=== PATIENT | female | born 1985 | race American Indian/Alaskan Native ===

== ENCOUNTER 2020-07-09 03:47 | Emergency (ER) | payer SELFPAY ==
[2020-07-09 04:51] LABS: Hematocrit 36.7 % (30.3-42.9); Hemoglobin 12.2 gm/dl (10.1-14.3); Mean Corpuscular HGB Conc 33 % (30-34); Mean Corpuscular Volume 83 fl (79-97); Red Blood Count 4.41 M/mm3 (3.65-5.03)
[2020-07-09 04:55] LABS: Lymphocytes % (Auto) 5.9 % (13.4-35.0); Monocytes % (Auto) 10.2 % (0.0-7.3); Platelet Count 183 K/mm3 (140-440); Red Cell Distribution Width 20.6 % (13.2-15.2)
[2020-07-09 04:56] LABS: Basophils # (Auto) 0.1 K/mm3 (0.0-0.1); Eosinophils # (Auto) 0.1 K/mm3 (0.0-0.4); Lymphocytes # (Auto) 0.4 K/mm3 (1.2-5.4); Monocytes # (Auto) 0.7 K/mm3 (0.0-0.8)
[2020-07-09 05:11] LABS: Alanine Aminotransferase 58 units/L (7-56); BUN/Creatinine Ratio 12; Blood Urea Nitrogen 7 mg/dL (7-17); Calcium 9.5 mg/dL (8.4-10.2); Hemolysis Index 0
[2020-07-09 05:51] LABS: Bilirubin,Urine NEG (Negative); Blood,Urine NEG (Negative); Color,Urine Yellow (Yellow); Mucus,Urine 1+ /HPF
[2020-07-09] MEDS ORDERED: SODIUM CHLORIDE 0.9% 1000 ML 1,000 ML IV ONE (07:37)
--- NOTE | 2020-07-09 07:42 | Emergency Department Report ---
ED General Adult HPI - General Chief complaint: Abdominal Pain Stated complaint: VOMITING,COUGHING,STOMACH PAINS Time Seen by Provider: 07/09/20 07:23 Source: patient, EMS Mode of arrival: Ambulatory Limitations: No Limitations - History of Present Illness Initial comments: 35-year-old female patient with history of diabetes, hypertension, asthma, and peptic ulcer disease presents to the emergency department with complaints of generalized body aches, headache, nausea, vomiting, diarrhea, cough, and abdominal pain progressively worsening for 1 week. No known sick contacts. No recent travel. No current steroid or antibiotic use. Last menstrual cycle was 2 weeks ago. Abdominal pain is localized to the right lower quadrant. No prior abdominal surgeries. No known STD exposure or history of STD's. Denies fever, chills, wheezing, chest pain, rectal bleeding, vaginal bleeding, vaginal discharge, urinary symptoms. Denies all other complaints at this time. - Related Data Previous Rx's Medication Instructions Recorded Last Taken Type DOXYCYCLINE Hyclate [Vibramycin 100 mg PO Q12HR 14 Days capsule 07/09/20 Unknown Rx CAP] Metoclopramide [Reglan] 10 mg PO TID #20 tab 07/09/20 Unknown Rx Naproxen [Naprosyn] 500 mg PO BID #20 tablet 07/09/20 Unknown Rx levoFLOXacin [Levaquin TAB] 500 mg PO QDAY 14 Days tablet 07/09/20 Unknown Rx metroNIDAZOLE [Flagyl] 500 mg PO Q12HR 7 Days tab 07/09/20 Unknown Rx Allergies Allergy/AdvReac Type Severity Reaction Status Date / Time peanut Allergy Unknown Verified 07/09/20 04:16 Penicillins Allergy Unknown Verified 07/09/20 04:16 shellfish derived Allergy Unknown Verified 07/09/20 04:16 ED Review of Systems ROS: Stated complaint: VOMITING,COUGHING,STOMACH PAINS Other details as noted in HPI Other: GENERAL: Negative for fever, chills, weight change, anorexia, fatigue. ENT: Negative for ear pain, difficulty hearing, sore throat, nasal congestion, epistaxis. CARDIOVASCULAR: Negative for chest pain, palpitations, lower extremity swelling. PULMONARY: Positive for cough. GASTROINTESTINAL: Positive for abdominal pain, nausea, vomiting, diarrhea. MUSCULOSKELETAL: Positive for myalgias. NEUROLOGICAL: Positive for headache. INTEGUMENTARY: Negative for erythema, rash, diaphoresis, laceration, ecchymosis. HEMATOLOGICAL: Negative for hemoptysis, hematemesis, hematochezia, hematuria. PSYCHIATRIC: Negative for hallucinations, suicidal ideation, homicidal ideation, anxiety, depression. ED Past Medical Hx - Past Medical History Previous Medical History?: Yes Hx Seizures: Yes Hx Asthma: Yes Additional medical history: PUD - Surgical History Past Surgical History?: Yes Additional Surgical History: left arm, radial nerve damage - Social History Smoking Status: Current Every Day Smoker Substance Use Type: None - Medications Home Medications: Home Medications Medication Instructions Recorded Confirmed Last Taken Type DOXYCYCLINE Hyclate [Vibramycin 100 mg PO Q12HR 14 Days capsule 07/09/20 Unknown Rx CAP] Metoclopramide [Reglan] 10 mg PO TID #20 tab 07/09/20 Unknown Rx Naproxen [Naprosyn] 500 mg PO BID #20 tablet 07/09/20 Unknown Rx levoFLOXacin [Levaquin TAB] 500 mg PO QDAY 14 Days tablet 07/09/20 Unknown Rx metroNIDAZOLE [Flagyl] 500 mg PO Q12HR 7 Days tab 07/09/20 Unknown Rx ED Physical Exam - General Limitations: No Limitations - Other Other exam information: General: Awake and alert. No acute distress. Head: Atraumatic, normocephalic. Eyes: EOMI. Pupils are equal and round, reactive to light, no nystagmus. Normal sclera and conjunctiva. ENT: Oral mucosa is moist. Normal pharyngeal exam. Neck: Supple. No lymphadenopathy. Pulmonary: No respiratory distress. Clear to auscultation bilaterally. Cardiac: Tachycardic. Pulses are palpable and equal bilaterally. No lower extremity cyanosis or edema. Skin: Warm and dry. No rashes. Abdomen: Soft, non-protuberant. Positive McBurney's point tenderness with involuntary guarding. Bowel sounds are normal. No organomegaly or masses noted. 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 Normal external inspection. Cervical os is closed. There is no cervical motion tenderness. No blood in the vaginal vault. Thin white discharge present. No adnexal masses. There is uterine tenderness. Back: Normal alignment. No CVA tenderness. Extremities: Symmetrical. Full range of motion intact. Neurological: Alert and oriented, appropriately interactive, no focal deficits. Strength and sensation intact throughout. Psych: Cooperative. Appropriate mood and affect. Speech is evenly metered. Thoughts are logically construed. ED Course Vital Signs 07/09/20 07/09/20 07/09/20 04:09 12:10 12:12 Temperature 98.3 F Pulse Rate 111 H Respiratory 16 18 18 Rate Blood Pressure 135/98 Blood Pressure [Left] O2 Sat by Pulse 95 Oximetry 07/09/20 16:35 Temperature Pulse Rate 92 H Respiratory 18 Rate Blood Pressure Blood Pressure 132/92 [Left] O2 Sat by Pulse 99 Oximetry ED Medical Decision Making - Lab Data Result diagrams: 07/09/20 04:25 07/09/20 04:25 - Radiology Data [facility] [address] [place] [address] Cat Scan Report Signed Patient: KIERAN CLAROS MR#: [id number] : 1985 Acct:[id number] Age/Sex: 35 / F ADM Date: 07/09/20 Loc: ED Attending Dr: Ordering Physician: JEN GONZALEZ Date of Service: 07/09/20 Procedure(s): CT abdomen pelvis w con Accession Number(s): [id number] cc: JEN GONZALEZ CT ABDOMEN AND PELVIS WITH CONTRAST INDICATION / CLINICAL INFORMATION: Right lower quadrant tenderness. TECHNIQUE: Axial CT images were obtained through the abdomen and pelvis after 100 cc of Omnipaque [address] scans at this location are performed using CT dose reduction for ALARA by means of automated exposure control. COMPARISON: None available. FINDINGS: LOWER CHEST: No significant abnormality. LIVER: There is fatty infiltration of the liver. GALLBLADDER: No significant abnormality. BILE DUCTS: No significant abnormality. PANCREAS: No significant abnormality. SPLEEN: No significant abnormality. ADRENALS: No significant abnormality. RIGHT KIDNEY / URETER: No significant abnormality. LEFT KIDNEY / URETER: No significant abnormality. STOMACH / SMALL BOWEL: No significant abnormality. COLON: No significant abnormality. APPENDIX: No significant abnormality. PERITONEUM: No free fluid. No free air. No fluid collection. LYMPH NODES: No significant adenopathy. AORTA / ARTERIES: No significant abnormality. IVC / VEINS: No significant abnormality. URINARY BLADDER: No significant abnormality. REPRODUCTIVE ORGANS: There are uterine fibroids. The largest measures 6.3 cm. There is a 1.7 cm cyst in the left ovary characteristic of physiologic cyst. ADDITIONAL FINDINGS: None. SKELETAL SYSTEM: No significant abnormality. IMPRESSION: 1. There is no obstruction, inflammation, or free air. The appendix is unremarkable. 2. There are uterine fibroids. 3. There is fatty infiltration of the liver. Signer Name: Tereso Jeong MD Signed: 07/09/2020 9:31 AM Workstation Name: [id number] Transcribed By: Dictated By: Tereso Jeong MD Electronically Authenticated By: Tereso Jeong MD Signed Date/Time: 07/09/20930 DD/ 6 TD/TT: - Medical Decision Making Differential diagnosis including but not limited to: appendicitis, pyelonephritis, nephrolithiasis, urinary tract infection, ovarian cyst/torsion, ectopic , bowel obstruction, bowel perforation, pneumonia, viral infection, pelvic inflammatory disease Note: Patient given IV Ativan due to anxiety while attempting to obtain CT. patient tolerated scan on second attempt On re-evaluation, patient remains stable. Repeat abdominal exam is benign. Tachycardia resolved after IV fluids. Labs show mild transaminitis; CT of the abdomen/pelvis shows fatty liver infiltration, as well as a left ovarian cyst and uterine fibroids. Patient has been made aware of findings pertaining to the liver, and has been advised to follow-up with primary care provider for further evaluation on an outpatient basis. She has also been referred to gynecology for further evaluation and management of uterine fibroids. Appendix appears normal. Urinalysis shows pyuria; pelvic examination demonstrates thin white discharge. Trichomonas seen on wet prep; STD cultures pending. Patient has been treated empirically for PID with Doxycycline, Levaquin, and Flagyl. She reportedly has an anaphylactic reaction to Penicillin. Emphasized the importance of adhering to prescribed medication regimen for full duration, and instructed to contact all sexual partners regarding these results. Patient expressed understanding and is agreeable to plan of care. Disease transmission precautions discussed. Strict return precautions provided. Repeat exam is unremarkable and benign. History, exam, diagnostic testing, and current condition do not suggest worrisome pathology to warrant further testing, continued ED treatment, admission, or surgical evaluation at this point. Given the low probability of a significant medical illness, it would be more likely to result in harm than benefit to perform further testing at this stage. Discussed findings, presumptive diagnosis, need for follow-up and specific signs/symptoms that should prompt immediate return to the emergency department. Instructions were explained in detail to the patient in addition to giving written discharge information. Patient expressed understanding and was given the opportunity to ask questions, all of which were satisfactorily answered prior to discharge home. Case discussed with Dr. Hernandez, attending emergency physician, who agrees with plan of care. Critical care attestation.: If time is entered above; I have spent that time in minutes in the direct care of this critically ill patient, excluding procedure time. ED Disposition Clinical Impression: Fatty liver, Trichomonas infection Uterine fibroid Qualifiers: Uterine leiomyoma location: unspecified location Qualified Code(s): D25.9 - Leiomyoma of uterus, unspecified Ovarian cyst Qualifiers: Laterality: left Qualified Code(s): N83.202 - Unspecified ovarian cyst, left side Disposition: TO HOME OR SELFCARE Is pt being admited?: No Does the pt Need Aspirin: No Condition: Stable Instructions: Uterine Fibroids, [id number], Trichomoniasis, Abdominal Pain (ED) Additional Instructions: Take Tylenol every 4 hours as needed for pain. Take Naprosyn twice daily with food as needed for pain. Take Reglan as needed for nausea/vomiting Take Flagyl with food as directed. Do not consume any alcohol taking this medication. Take Doxycycline and Levaquin with food as directed. Apply heating pad to affected area as needed for pain. 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 Call today to schedule an appointment. See referral information below. Bring a copy of today's CT results with you to your follow-up appointments. You must notify all sexual partners of today's lab results. Return to the emergency department immediately for new or worsening symptoms. Prescriptions: metroNIDAZOLE [Flagyl] 500 mg PO Q12HR 7 Days tab levoFLOXacin [Levaquin TAB] 500 mg PO QDAY 14 Days tablet Naproxen [Naprosyn] 500 mg PO BID #20 tablet Metoclopramide [Reglan] 10 mg PO TID #20 tab DOXYCYCLINE Hyclate [Vibramycin CAP] 100 mg PO Q12HR 14 Days capsule Referrals: RACHEL MCMAHAN MD [Staff Physician] - 3-5 Days [facility] [Provider Group] - 3-5 Days Forms: Work/School Release Form(ED) Time of Disposition: 16:09
--- NOTE | 2020-07-09 08:07 | XRay Report ---
CHEST 2 VIEWS INDICATION / CLINICAL INFORMATION: Cough, nausea, vomiting, history of asthma. COMPARISON: None available. FINDINGS: SUPPORT DEVICES: None. HEART / MEDIASTINUM: No significant abnormality. LUNGS / PLEURA: Clear lungs. No significant pleural effusion. No pneumothorax. ADDITIONAL FINDINGS: No significant additional findings. IMPRESSION: 1. No acute abnormality of the chest. Signer Name: Jose A Pedroza MD Signed: 07/09/2020 8:02 AM Workstation Name: [id number]
[2020-07-09] MEDS ORDERED: LORazepam 2 MG/ML VIAL IV ONE (08:21)
--- NOTE | 2020-07-09 09:35 | Cat Scan Report ---
CT ABDOMEN AND PELVIS WITH CONTRAST INDICATION / CLINICAL INFORMATION: Right lower quadrant tenderness. TECHNIQUE: Axial CT images were obtained through the abdomen and pelvis after 100 cc of Omnipaque [address] scans at this location are performed using CT dose reduction for ALARA by means of automated exposure control. COMPARISON: None available. FINDINGS: LOWER CHEST: No significant abnormality. LIVER: There is fatty infiltration of the liver. GALLBLADDER: No significant abnormality. BILE DUCTS: No significant abnormality. PANCREAS: No significant abnormality. SPLEEN: No significant abnormality. ADRENALS: No significant abnormality. RIGHT KIDNEY / URETER: No significant abnormality. LEFT KIDNEY / URETER: No significant abnormality. STOMACH / SMALL BOWEL: No significant abnormality. COLON: No significant abnormality. APPENDIX: No significant abnormality. PERITONEUM: No free fluid. No free air. No fluid collection. LYMPH NODES: No significant adenopathy. AORTA / ARTERIES: No significant abnormality. IVC / VEINS: No significant abnormality. URINARY BLADDER: No significant abnormality. REPRODUCTIVE ORGANS: There are uterine fibroids. The largest measures 6.3 cm. There is a 1.7 cm cyst in the left ovary characteristic of physiologic cyst. ADDITIONAL FINDINGS: None. SKELETAL SYSTEM: No significant abnormality. IMPRESSION: 1. There is no obstruction, inflammation, or free air. The appendix is unremarkable. 2. There are uterine fibroids. 3. There is fatty infiltration of the liver. Signer Name: Tereso Jeong MD Signed: 07/09/2020 9:31 AM Workstation Name: [id number]
[2020-07-09] MEDS ORDERED: ACETAMINOPHEN 500 MG TAB PO ONE (11:53)
[2020-07-09] MEDS ORDERED: KETOROLAC 30 MG/1 ML INJ IV ONE (11:53)
[2020-07-09] MEDS ORDERED: metroNIDAZOLE 500 MG TAB PO ONE (11:56)
[2020-07-09] MEDS ORDERED: levoFLOXacin 500 MG TAB PO ONE (11:56)
[2020-07-09] MEDS ORDERED: DOXYCYCLINE 100 MG CAP PO ONE (11:56)
[2020-07-09 16:36] VITALS: BP 132/92
== END 2020-07-09 16:34 | disposition home or self-care (01) ==
LOC: ED 03:47
DX: D30.22 Benign neoplasm of left ureter (principal); N83.202 Unspecified ovarian cyst, left side; K76.0 Fatty (change of) liver, not elsewhere classified; A59.9 Trichomoniasis, unspecified; G40.909 Epilepsy, unspecified, not intractable, without status epilepticus; J45.909 Unspecified asthma, uncomplicated; F17.200 Nicotine dependence, unspecified, uncomplicated; Z79.899 Other long term (current) drug therapy; Z91.010 Allergy to peanuts; Z88.0 Allergy status to penicillin; Z91.013 Allergy to seafood
CPT/HCPCS: 36415; 71046; 74177; 80053; 81001; 83690; 83735; 84703; 85025; 87086; 87210; 87591; 96361; 96374; 96375; 99285; J1885; J2060; J7030; Q9967

== ENCOUNTER 2020-10-05 05:33 | Emergency (ER) | payer OTHER ==
[2020-10-05] MEDS ORDERED: TETANUS,DIPH,PERTUSS(ACELL) VACCINE 0.5 ML SYRINGE IM ONE (07:02)
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
[2020-10-05 07:41] VITALS: BP 105/89
== END 2020-10-05 07:50 ==
LOC: ED 05:33
DX: S01.112A Laceration without foreign body of left eyelid and periocular area, initial encounter (principal); E11.9 Type 2 diabetes mellitus without complications; R56.9 Unspecified convulsions; J45.909 Unspecified asthma, uncomplicated; F17.200 Nicotine dependence, unspecified, uncomplicated; Z98.890 Other specified postprocedural states; Z79.899 Other long term (current) drug therapy; Z91.010 Allergy to peanuts; Z91.013 Allergy to seafood; Z88.0 Allergy status to penicillin; W26.9XXA Contact with unspecified sharp object(s), initial encounter; Y93.89 Activity, other specified; Y92.89 Other specified places as the place of occurrence of the external cause; Y99.8 Other external cause status
CPT/HCPCS: 90471; 90715